=== PATIENT | female | born 1930 | race Caucasian/White ===

== ENCOUNTER 2016-11-17 10:40 | Day surgery (SDC) | payer MEDICARE, OTHER ==
[~2016-11-17] VITALS: Ht 162.6 cm; Wt 70.5 kg
--- NOTE | ~2016-11-17 | OP ---
PATIENT NAME: ZAINA OZUNA MEDICAL RECORD: [id number] :30 LOCATION:[facility] ADMISSION DATE: SURGEON: JOSELINE DUNN DO DATE OF OPERATION: 11/17/2016 PROCEDURE: EGD with biopsies and balloon dilation less than 30 mm. INDICATIONS FOR PROCEDURE: Epigastric abdominal pain, heartburn, nausea, pain provoked by eating. SCOPE: Olympus video gastroscope. MEDICATIONS: Propofol 50 mg IV per anesthesia. ESTIMATED BLOOD LOSS: Minimal. FINDINGS: Informed consent was given. The patient was made comfortable with the above medication. After reaching an adequate level of sedation by slow IV push, the patient was placed on her left side. The endoscope was then advanced under direct visualization through the mouth to the second portion of the duodenum. The upper, middle, and distal third of the esophagus appeared normal. At the GE junction, there was evidence of a Schatzki ring. This was dilated up to 18 mm using a CRE balloon through the scope. This maneuver was successful. Just distal to the Schatzki ring was some mild reflux-induced esophagitis, LA class A. Scope was advanced in the stomach and retroflexed to view the cardia, where a small sliding hiatal hernia was present. There were also multiple benign-appearing fundic gland polyps located in the fundus and body of the stomach. A single polyp was removed and submitted to pathology to confirm this. In the antrum and prepyloric region, there was some streaky erythema and some granularity consistent with possible gastritis. Random biopsies were taken to submit for histology and to rule out H. pylori. The endoscope was advanced into the duodenum where the bulb and second portion of the duodenum appeared normal. The endoscope was then withdrawn from the patient. The patient tolerated the procedure well and there were no complications. IMPRESSION: 1. Schatzki ring at the GE junction, dilated to 18 mm. 2. Mild grade A reflux-induced esophagitis. 3. Small sliding hiatal hernia. 4. Granularity and erythema of the stomach consistent with gastritis with biopsies pending. 5. Multiple benign-appearing gastric polyps with a biopsy taken. PLAN AND RECOMMENDATIONS: 1. Discharge home when recovery parameters are met. 2. Continue reflux diet and reflux precautions. 3. Continue omeprazole 40 mg daily in the a.m. 4. Okay to add [id number] Zantac 150 mg p.o. q.h.s. 5. Discontinue Reglan as it does not seem to be helping and actually worsens the patient's abdominal pain. 6. Follow up biopsy specimen results. 7. Consider barium esophagram if this dilation does not help with her epigastric pain and swallowing difficulties. 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
[2016-11-17 11:29] LABS: HEMATOCRIT 40.3 % (36.0-48.0); HEMOGLOBIN 13.3 g/dL (12-16); MCH 31.2 pg (26.0-34.0); MCV 94.6 fL (80.0-100.0); MEAN PLATELET VOLUME 9.8 fL (7.4-10.4); RBC 4.26 10x6/uL (4.00-5.40); RDW 13.6 % (11.5-14.5); WBC 5.9 10x3/uL (4.8-10.8)
[2016-11-17] MEDS ORDERED: XALATAN 0.0052.5 ML EACH EYE (11:34)
[2016-11-17] MEDS ORDERED: OMEPRAZOLE20 M1 PO (11:35)
[2016-11-17] MEDS ORDERED: XANAX0.5 MG PO (11:35)
[2016-11-17] MEDS ORDERED: RITALIN10 MG PO (11:35)
[2016-11-17] MEDS ORDERED: ULTRAM50 MG PO (11:35)
[2016-11-17 11:42] VITALS: Ht 162.6 cm; Wt 70.5 kg
--- NOTE | 2016-11-17 13:39 | NUR ---
1310- PT SUPINE WITH HOB ELEVATED. EYES CLOSED, RESPONDS TO VERBAL STIMULI. 2L O2 NC, SAT > 92%. VSS. MARJORIE GANNON.
--- NOTE | 2016-11-17 13:40 | NUR ---
1330- FULL LIQUIDS OFFERED, TOLERATING.
--- NOTE | 2016-11-17 14:32 | NUR ---
1400- IV D/C'D, PT TOLERATED. CATHETER INTACT. 1410- DISCHARGE INSTRUCTIONS COMPLETED, PT VERBALIZES UNDERSTANDING. PAPERWORK SIGNED. 1415- PT DISCHARGED VIA WHEELCHAIR TO FRONT ENTRANCE.
== END 2016-11-17 14:15 | disposition home or self-care (01) ==
LOC: D.OPS 10:40
PROVIDERS: Anesthesiology
DX: K31.7 Polyp of stomach and duodenum (principal); R10.13 Epigastric pain; R11.0 Nausea; K44.9 Diaphragmatic hernia without obstruction or gangrene; K22.2 Esophageal obstruction; K21.0 Gastro-esophageal reflux disease with esophagitis; Z01.812 Encounter for preprocedural laboratory examination

== ENCOUNTER → 2018-03-16 08:24 | Outpatient (CLI) | payer MEDICARE, OTHER ==
[2016-11-17 11:42] VITALS: BMI 26.6
[~2018-03-16 08:24] MED LIST: OMEPRAZOLE20 M1 PO; RITALIN10 MG PO; ULTRAM50 MG PO; XALATAN 0.0052.5 ML EACH EYE; XANAX0.5 MG PO
== END | disposition home or self-care (01) ==
LOC: D.CT 08:24
DX: R51 Headache (principal)